=== PATIENT | female | born 1985 | race Caucasian/White ===

== ENCOUNTER 2016-09-08 11:35 | Emergency (ER) | payer OTHER ==
[~2016-09-08] VITALS: Ht 157.5 cm; Wt 106.5 kg
[~2016-09-08 11:35] MED LIST: BUSPAR7.5 MG PO; CELEXA40 MG PO; FLEXERIL10 MG PO; METFORMIN HCL1000 MG PO; METFORMIN HCL500 M4 PO; MOTRIN600 MG PO; MOTRIN800 MG PO; XANAX0.5 MG PO
[2016-09-08 12:08] LABS: HEMATOCRIT 45.7 % (36.0-46.0); MCH 28.4 PG (29.0-34.0); MCHC 32.6 G/DL (30.0-36.0); MEAN PLAT.VOLUME 12.3 uM^3 (9.5-12.4); PLATELET COUNT 295 K/uL (156-360); RBC DIS.WIDTH-CV 11.9 % (11.8-14.6); RBC DIS.WIDTH-SD 37.9 % (39-53); RED BLOOD COUNT 5.25 M/uL (3.80-5.20); WHITE BLOOD COUNT 8.6 K/uL (4.1-10.2)
[2016-09-08 12:15] LABS: CHLORIDE 104 mEq/L (99-109); POTASSIUM 4.6 mEq/L (3.7-5.4); SODIUM 140 mEq/L (136-147)
[2016-09-08 12:17] LABS: GLUCOSE 232 mg/dL (70-99)
[2016-09-08 12:18] LABS: ANION GAP 10 MEQ/L (2-14)
[2016-09-08 12:21] LABS: GFR ESTIMATE (CALCULATED) > 59 mL/min/; UREA NITROGEN (BUN) 11 mg/dL (9-23)
[2016-09-08 12:25] LABS: TROP-I INTERPRETATION NEGATIVE; TROPONIN-I < 0.01 ng/mL (0.0-0.30)
[2016-09-08] MEDS ORDERED: ATIVAN1 MG PO (14:15)
[2016-09-08 14:55] VITALS: BP 155/99
== END 2016-09-08 14:56 | disposition home or self-care (01) ==
LOC: EME 11:35
DX: F41.9 Anxiety disorder, unspecified (principal); E11.9 Type 2 diabetes mellitus without complications; Z79.84 Long term (current) use of oral hypoglycemic drugs; Z82.49 Family history of ischemic heart disease and other diseases of the circulatory system; Z87.891 Personal history of nicotine dependence
CPT/HCPCS: 71020; 80048; 84484; 85027; 93005; 99281; 99284

== ENCOUNTER 2017-10-11 11:38 | Emergency (ER) | payer BC ==
[~2017-10-11] VITALS: Ht 157.5 cm; Wt 101.3 kg
[~2017-10-11 11:38] MED LIST changes: +ATIVAN1 MG PO
[2017-10-11 12:16] LABS: HEMATOCRIT 43.5 % (36.0-46.0); HEMOGLOBIN 14.7 G/DL (11.9-15.5); MCH 29.2 PG (29.0-34.0); MCHC 33.8 G/DL (30.0-36.0); MCV 86.5 FL (83-99); PLATELET COUNT 275 K/uL (156-360); RBC DIS.WIDTH-SD 38.5 % (39-53); RED BLOOD COUNT 5.03 M/uL (3.80-5.20)
[2017-10-11 12:24] LABS: D-DIMER ELISA < 150.00 ng/mLDDU (<230)
[2017-10-11 12:27] LABS: CHLORIDE 103 mEq/L (99-109); POTASSIUM 3.9 mEq/L (3.7-5.4); SODIUM 136 mEq/L (136-147)
[2017-10-11 12:28] LABS: GLUCOSE 313 mg/dL (70-99)
[2017-10-11 12:32] LABS: CREATININE 0.7 mg/dL (0.6-1.3); GFR ESTIMATE (CALCULATED) > 59 mL/min/
[2017-10-11 12:33] LABS: UREA NITROGEN (BUN) 13 mg/dL (9-23)
[2017-10-11 12:40] LABS: QUANTITATIVE HCG < 4.0 MIU/ML
[2017-10-11] MEDS ORDERED: MOTRIN800 MG PO (13:28)
[2017-10-11 13:43] VITALS: BP 159/89
== END 2017-10-11 13:45 | disposition home or self-care (01) ==
LOC: EME 11:38
PROVIDERS: Physician Assistant
DX: R07.89 Other chest pain (principal); M25.512 Pain in left shoulder; M79.602 Pain in left arm; R06.00 Dyspnea, unspecified; E11.9 Type 2 diabetes mellitus without complications; Z79.84 Long term (current) use of oral hypoglycemic drugs; Z87.891 Personal history of nicotine dependence
CPT/HCPCS: 71046; 80048; 84702; 85027; 85379; 93005; 99281; 99284; J1885